=== PATIENT | male | born 1955 | race Caucasian/White ===

== ENCOUNTER 2016-07-16 16:00 | Inpatient (IN) | payer OTHER ==
[2016-07-16] VITALS (33 sets, daily range): BP systolic 85–117; BP diastolic 56–82
[~2016-07-16] VITALS: Ht 180.3 cm; Wt 68.9 kg
--- NOTE | ~2016-07-16 | 2DMMODE ---
[facility] [address] [place] [address] 2 D/M-MODE ECHOCARDIOGRAM Name: MOEJAYY Room #: 243-P [facility] IN M.R.#: [id number] Admission: 07/16/16 Attend Phys: Kosta Fuchs Discharge: 07/18/16 Date of : 57 Date of Service: 07/18/16 1514 Report #: [id number] THIS REPORT FOR: //name// APPROVED REPORT Study performed: 07/18/2016 08:15:37 EXAM: Comprehensive 2D, Doppler, and color-flow Echocardiogram Patient Location: Bedside/ Room 243 Blood Pressure: 120/88 mmHg HR: 67 bpm Other Information Study Quality: Good Indications Dyspnea Chest Pain Status/Post WA Hx: CAD, stents, HTN, HLP 2D Dimensions RVDd: 40.52 mm LVEF(%): 63.55 (>50%) IVSd: 9.69 (7-11mm) LVOT Diam: 21.14 (18-24mm) LVDd: 45.89 mm PWd: 9.30 (7-11mm) Ascending Aorta: 30.74 mm LVDs: 30.10 (25-40mm) Aortic Root: 32.20 mm Lazo's LVEF: 63.55 % Volumes Left Atrial Volume (Systole) Single Plane 4CH: 30.49 mL Single Plane 2CH: 26.72 mL LA ESV Index: 17.00 mL/m2 Aortic Valve AoV Peak Panfilo.: 1.43 m/s AO Peak Gr.: 8.24 mmHg LV Max P.93 mmHg LV Max: 0.99 m/s Mitral Valve MV PHT: 139.40 ms [facility] [address] [place] [address] 2 D/M-MODE ECHOCARDIOGRAM Name: MOEJAYY Room #: 243-P [facility] IN [facility].#: [id number] Admission: 07/16/16 Attend Phys: Kosta Fuchs Discharge: 07/18/16 Date of : 57 Date of Service: 07/18/16 1514 Report #: [id number] MV E Max Panfilo.: 0.55 m/s E/A Ratio: 0.8 MV A Panfilo.: 0.68 m/s MV Decel. Time: 480.70 ms Pulmonary Valve PV Peak Panfilo.: 0.76 m/s PV Peak Gr.: 2.30 mmHg Tricuspid Valve TR Peak Panfilo.: 2.50 m/s RAP Estimate: 5.00 mmHg TR Peak Gr.: 25.03 mmHg RVSP: 30.00 mmHg Left Ventricle The left ventricle is normal size. Regional wall motion abnormalities are noted. There is normal left ventricular wall thickness. Left ventricular systolic function is borderline. LVEF is 45-50%. Grade I - abnormal relaxation pattern. Right Ventricle The right ventricle is normal size. Right ventricle appears hypokinetic. Atria The left atrium size is normal. The right atrium size is normal. Aortic Valve Aortic valve leaflets are mildly thickened. No aortic regurgitation is present. There is no aortic valvular stenosis. Mitral Valve The mitral valve is normal in structure. Mild mitral regurgitation. Tricuspid Valve The tricuspid valve is normal in structure. There is trace tricuspid regurgitation. The right atrial pressure is estimated at 5 mmHg. There is borderline mild pulmonary hypertension with an estimated PAP of 30mmHg. Pulmonic Valve The pulmonary valve is normal in structure. Trace pulmonic regurgitation. Great Vessels The aortic root is normal in size. The ascending aorta is normal in size. IVC is normal in size and collapses >50% with inspiration. [facility] [address] [place] [address] 2 D/M-MODE ECHOCARDIOGRAM Name: MOEJAYY Room #: 243-P [facility] IN M.R.#: [id number] Admission: 07/16/16 Attend Phys: Kosta Fuchs Discharge: 07/18/16 Date of : 57 Date of Service: 07/18/16 1514 Report #: [id number] Pericardium There is no pericardial effusion. <Conclusion> The left ventricle is normal size. Regional wall motion abnormalities are noted. LVEF is 45-50%. Right ventricle appears hypokinetic. Aortic valve leaflets are mildly thickened. Mild mitral regurgitation. There is trace tricuspid regurgitation. The right atrial pressure is estimated at 5 mmHg. There is borderline mild pulmonary hypertension with an estimated PAP of 30mmHg. Trace pulmonic regurgitation. <ELECTRONICALLY SIGNED> By: Kam Aguirre MD 07/18/16 1514 1514 1514 Kam Aguirre MD /INF
--- NOTE | ~2016-07-16 | EKG ---
[address] [address] ELECTROCARDIOGRAM REPORT Name: JAYY ROSA Room #: 243-P ADM IN M.R.#: [id number] Admission: 07/16/16 Attend Phys: Andrea Ortiz MD Discharge: Date of : 57 Report #: [id number] THIS REPORT FOR: //name// [facility] ED Test Date: 2016-07-16 Test Time: 16:02:54 Pat Name: JAYY ROSA Department: Room: 243 Gender: M Coke Wheeler: daniel : 1955 Requested By: Ayo Vega Order Number: [id number] MD: Noel Love Measurements Intervals [place] Rate: 55 P: ME: QRS: 147 QRSD: 128 T: 96 QT: 494 QTc: 473 Interpretive Statements Sinus rhyth Acute inferior TN ST depression V1-V3, suggest recording posterior leads Baseline wander in lead(s) I,III,aVL,aVF No previous ECG available for comparison Electronically Signed On 07-17-2016 20:04:50 CDT by Noel Love [email or web address] <ELECTRONICALLY SIGNED> By: Noel Love MD 07/17/162003 01 01 Noel Love MD /[facility]
--- NOTE | ~2016-07-16 | HC ---
[facility] [place] [address] CONSULTATION Name: JAYY ROSA Room #: 243-P ADM IN M.R.#: [id number] Admission: 07/16/16 Attend Phys: Andrea Ortiz MD Discharge: Date of : 57 Report #: [id number] THIS REPORT FOR: //name// CC: WILIAN physician/PCP Andrea Ortiz DATE OF SERVICE: 07/16/2016 INDICATION: Chest pain. HISTORY OF PRESENT ILLNESS: This is a 50-year-old gentleman presenting with acute onset of substernal chest pain associated with shortness of breath and diaphoresis. He had been up on the roof, working on shingles when he developed chest pains. He came down to the ground and told his . He was outside until EMS arrived, unclear the duration. May be anywhere from 45 minutes to [id number]. Initial EKG revealed inferior ST segment elevation. In the ER, he complains of chest pains and shivering, complaining of excessive cold. PAST MEDICAL HISTORY: In 2011, an SC with stent placed, unknown hospital. He reports taking medications, but his followups had been inconsistent, hypertension, hypercholesterolemia, tobacco use. ALLERGIES: None. MEDICATIONS: Unknown, reports taking Plavix 75 mg daily, metoprolol, lisinopril, and pravastatin. Again, there is a history of noncompliance. SOCIAL HISTORY: Smokes at least 1 pack of cigarettes per day. FAMILY HISTORY: Negative for premature CAD. REVIEW OF SYSTEMS: Unable to be performed as the patient is in distress. PHYSICAL EXAMINATION: VITAL SIGNS: Blood pressure is 117/60, heart rate is 55 beats per minute. GENERAL APPEARANCE: The patient in mild distress with shivering. HEENT: Normocephalic. Sclerae are anicteric. Oral mucosa moist. NECK: Supple. LUNGS: Clear to auscultation. CARDIAC: Regular rate and rhythm, S1, S2 positive. ABDOMEN: Soft, nontender. Bowel sounds positive. EXTREMITIES: No major joint deformities. No edema. LABORATORY VALUES: Pending. ECG reveals sinus bradycardia, ST elevation in leads II, III, aVF. [facility] [address] [place] [address] CONSULTATION Name: JAYY ROSA Room #: 243-P ADM IN M.R.#: [id number] Admission: 07/16/16 Attend Phys: Andrea Ortiz MD Discharge: Date of : 57 Report #: [id number] ASSESSMENT: 1. Acute inferior wall myocardial infarction, the patient will need to go to the cardiac clinical lab assistant. 2. Hypertension. 3. Hypercholesterolemia. 4. Tobacco use, complete smoking cessation will be discussed. 5. ?Hypothermia, will need to assess further. <ELECTRONICALLY SIGNED> By: Ayo Vega MD 07/18/16 0759 1614 2205 Ayo Vega MD /nt
--- NOTE | ~2016-07-16 | EKG ---
[address] [place] [place] [address] ELECTROCARDIOGRAM REPORT Name: JAYY ROSA Room #: 243-P ADM IN M.R.#: [id number] Admission: 07/16/16 Attend Phys: Andrea Ortiz MD Discharge: Date of : 57 Report #: [id number] THIS REPORT FOR: //name// [facility] Test Date: 2016-07-16 Test Time: 23:41:42 Pat Name: JAYY ROSA Department: Room: 243 P Gender: M Per Diem Nurse: joao : 1955 Requested By: Ayo Vega Order Number: [id number] MD: Noel Love Measurements Intervals [place] Rate: 63 P: 74 [place]: 164 QRS: 216 QRSD: 111 T: -24 QT: 451 QTc: 462 Interpretive Statements Sinus rhythm Multiform ventricular premature complexes Inferior infarct, recent No previous ECG available for comparison Electronically Signed On 07-17-2016 20:13:10 CDT by Noel Love [email or web address] <ELECTRONICALLY SIGNED> By: Noel Love MD 07/17/162012 2341 2341 Noel Love MD /YANET
--- NOTE | ~2016-07-16 | CATHLAB ---
[place] [address] [facility] [employer] [address] INVASIVE PROCEDURE REPORT Name: JAYY ROSA Room #: 243-P ADM IN M.R.#: [id number] Admission: 07/16/16 Attend Phys: Kosta Fuchs Discharge: Date of : 57 Date of Service: 07/16/16 1723 Report #: [id number] THIS REPORT FOR: //name// CC: WILIAN physician/PCP Andrea Ortiz DATE OF SERVICE: 07/16/2016 INDICATION: Acute inferior wall VA. The right groin area was prepped and draped in a sterile manner. Lidocaine was given subcutaneously. A 6-Burundian sheath was inserted into the right femoral artery via modified Seldinger technique. CORONARY ANATOMY: The left main artery is a large caliber vessel, with no flow-limiting lesions. The LAD is a moderate sized caliber vessel, traveling down the anterior wall. There is mild disease in the proximal and mid segments of the LAD, 20-30%. The second diagonal artery is a moderate sized caliber vessel with mild disease in the proximal segment. The left circumflex artery has mild disease in the proximal segment, 30-40%. There is one obtuse marginal artery of moderate size caliber. There were no flow-limiting lesions in the first obtuse marginal artery. The RCA is a dominant vessel with mild disease proximally. There were previously placed stents in the mid to distal segments of the RCA. Within the stented area, there is a total occlusion. The distal RCA is partially filled via collateral flow from the left coronary artery. A left ventriculogram was performed at the end of the procedure, revealing an ejection fraction of 35%. There is severe hypokinesis of the inferior and inferoapical segments. The LVEDP is approximately 27 mmHg. There is no gradient across the outflow tract. ANGIOPLASTY REPORT: The patient had been given heparin and ACT was checked. The patient was given Angiomax for the procedure. We used a 6-Burundian system. I was able to pass a Luge wire through the obstruction in the stented area of the mid segment of the RCA. There were filling defects consistent with thrombus. We used [employer] thrombectomy catheter. After several passes, there was significant removal of the filling defects. There was still a residual lesion of at least 80% within the stented area. This was ballooned with a 3.0 mm Euphora balloon. Even after balloon dilatation, there was still significant residual stenosis. I elected to place a 3.25 x 12 mm Xience ( drug-eluting [address] [address] INVASIVE PROCEDURE REPORT Name: ROSAJAYY Room #: 243-P ADM IN M.R.#: [id number] Admission: 07/16/16 Attend Phys: Kosta Fuchs Discharge: Date of : 57 Date of Service: 07/16/16 1723 Report #: [id number] stent), inflated up to 14 atmospheres. This stent was postdilated with a 3.25 mm noncompliant balloon, NC Euphora inflated up to 20 atmospheres. Final injections revealed TISH 3 blood flow with a 0% residual stenosis at the lesion site. After the initial thrombectomy procedure with druze flow, the patient had significant ventricular arrhythmias including AIVR and slow ventricular tachycardia. He was given amiodarone bolus x 1. The blood pressure was in the low side and the patient was started on dopamine. Half amp atropine was also given for bradycardia. At the end of the procedure, he remained hemodynamically stable. IMPRESSION: 1. Successful recannulization of the total occlusion in a previously stented area in the mid right coronary artery, using mechanical thrombectomy and placement of a drug-eluting stent. 2. Mild disease in the left anterior descending and left circumflex arteries. 3. Moderately severe left ventricular dysfunction. 4. Recommend dual antiplatelet therapy. 5. Recommend risk factor management including cessation of tobacco use. <ELECTRONICALLY SIGNED> By: Ayo Vega MD 07/18/16 0758 1723 0126 Ayo Vega MD /nt
[2016-07-16 16:23] LABS: ABSOLUTE NEUTROPHILS 11.5 thou/uL (1.4-8.2); BASOPHILS 0.6 % (0.0-2.0); EOSINOPHILS 2.4 % (0.0-3.0); HEMATOCRIT 43.3 % (42.0-52.0); HEMOGLOBIN 14.7 gm/dL (14.0-18.0); LYMPHOCYTES 17.9 % (24.0-44.0); MCH 29.2 pg (26.0-34.0); MCHC 33.9 g/dL (28.0-37.0); MCV 86.1 fL (80.0-100.0); PLATELET COUNT 248 thou/uL (150-400); POLYS 74.1 % (36.0-66.0); RBC 5.02 mil/uL (4.50-6.00); RDW 13.7 % (10.5-14.5); WBC 15.5 thou/uL (4.0-11.0)
[2016-07-16 16:30] LABS: ANION GAP 14 mmol/L (7-16); BUN 23 mg/dL (7-18); CALCIUM 9.7 mg/dL (8.5-10.1); CHLORIDE 102 mmol/L (98-107); CO2 20 mmol/L (21-32); CREATININE 1.7 mg/dL (0.6-1.3); GLUCOSE 118 mg/dL (70-99); MANUAL DIFF NO; SODIUM 136 mmol/L (136-145)
[2016-07-16 16:32] LABS: POTASSIUM 4.4 mmol/L (3.5-5.1)
[2016-07-16 16:37] LABS: TROPONIN-I < 0.04 ng/mL (<0.04-0.07)
[2016-07-16 16:45] LABS: APTT 22.9 Seconds (24.5-32.8); INR 1.1; PROTIME 10.9 Seconds (9.3-11.4)
[2016-07-17] VITALS (53 sets, daily range): BP systolic 85–120; BP diastolic 61–88
[2016-07-17 04:31] LABS: ANION GAP 9 mmol/L (7-16); BUN 22 mg/dL (7-18); CALCIUM 8.3 mg/dL (8.5-10.1); CHLORIDE 106 mmol/L (98-107); CHOLESTEROL 154 mg/dL (<200); CO2 24 mmol/L (21-32); CREATININE 1.2 mg/dL (0.6-1.3); GLUCOSE 107 mg/dL (70-99); HDL CHOLESTEROL 54 mg/dL (>40); LDL CHOLESTEROL 81 mg/dL (<100); SODIUM 139 mmol/L (136-145); TC:HDL 2.9 Ratio (Not establshd); TRIGLYCERIDE 96 mg/dL (<150); VLDL 19 mg/dL (<40)
[2016-07-17 04:47] LABS: HEMATOCRIT 38.9 % (42.0-52.0); HEMOGLOBIN 13.2 gm/dL (14.0-18.0); MCH 29.7 pg (26.0-34.0); MCV 87.4 fL (80.0-100.0); RBC 4.46 mil/uL (4.50-6.00); RDW 14.1 % (10.5-14.5); WBC 9.9 thou/uL (4.0-11.0)
[2016-07-17 04:50] LABS: SERUM ASSESSMENT Clear
[2016-07-17 04:52] LABS: TROPONIN-I 39.94 ng/mL (<0.04-0.07)
[2016-07-18] VITALS (13 sets, daily range): BP systolic 106–133; BP diastolic 76–98
[2016-07-18 02:47] LABS: HEMATOCRIT 40.3 % (42.0-52.0); HEMOGLOBIN 13.6 gm/dL (14.0-18.0); MCH 29.5 pg (26.0-34.0); MCHC 33.7 g/dL (28.0-37.0); MCV 87.5 fL (80.0-100.0); RBC 4.6 mil/uL (4.50-6.00); RDW 13.9 % (10.5-14.5); WBC 9.6 thou/uL (4.0-11.0)
[2016-07-18 03:00] LABS: CALCIUM 8.5 mg/dL (8.5-10.1); POTASSIUM 4.2 mmol/L (3.5-5.1)
[2016-07-18 08:06] LABS: POC CA IONIZED 4.3 mg/dL (4.5-5.3); POC CREATININE 1.4 mg/dL (0.6-1.3); POC HEMOGLOBIN 14.6 g/dL (14.0-18.0); POC POTASSIUM 4.4 mmol/L (3.5-5.1)
[2016-07-18] MEDS ORDERED: NICOTINE TRANSD14 M1 TRANSDERM (09:46)
[2016-07-18] MEDS ORDERED: EFFIENT10 MG PO (09:46)
[2016-07-18] MEDS ORDERED: ASPIRIN325 PO (09:46)
[2016-07-18] MEDS ORDERED: ATORVASTATIN CA40 MG PO (09:46)
[2016-07-18] MEDS ORDERED: FOLIC ACID 1 MG1 MG PO (09:46)
[2016-07-18] MEDS ORDERED: VITAMIN B-1100 M2 PO (09:46)
== END 2016-07-18 11:33 | disposition home or self-care (01) | DRG 247 ==
LOC: ER 16:00 → ICU 16:06 → EROBS 16:06 → EDBD 16:06 → ICU 19:21
PROVIDERS: Emergency Medicine; Family Medicine; Internal Medicine Cardiovascular Disease
PROC: 027034Z Dilation of Coronary Artery, One Artery with Drug-eluting Intraluminal Device, Percutaneous Approach (ICD-10-PCS; principal; 2016-07-16)
PROC: 02C03ZZ Extirpation of Matter from Coronary Artery, One Artery, Percutaneous Approach (ICD-10-PCS; principal; 2016-07-16)
PROC: 4A023N7 Measurement of Cardiac Sampling and Pressure, Left Heart, Percutaneous Approach (ICD-10-PCS; principal; 2016-07-16)
PROC: B2151ZZ Fluoroscopy of Left Heart using Low Osmolar Contrast (ICD-10-PCS; principal; 2016-07-16)
PROC: B2111ZZ Fluoroscopy of Multiple Coronary Arteries using Low Osmolar Contrast (ICD-10-PCS; principal; 2016-07-16)
DX: I21.09 ST elevation (STEMI) myocardial infarction involving other coronary artery of anterior wall (principal); I25.10 Atherosclerotic heart disease of native coronary artery without angina pectoris; I10 Essential (primary) hypertension; I25.5 Ischemic cardiomyopathy; F17.210 Nicotine dependence, cigarettes, uncomplicated; E78.5 Hyperlipidemia, unspecified; I25.82 Chronic total occlusion of coronary artery; F12.10 Cannabis abuse, uncomplicated; D72.829 Elevated white blood cell count, unspecified; T68.XXXA Hypothermia, initial encounter; N28.9 Disorder of kidney and ureter, unspecified; R00.1 Bradycardia, unspecified; E78.00 Pure hypercholesterolemia, unspecified; Z88.8 Allergy status to other drugs, medicaments and biological substances; Z79.899 Other long term (current) drug therapy; Z71.6 Tobacco abuse counseling; Z91.14 Patient's other noncompliance with medication regimen; I25.2 Old myocardial infarction
CPT/HCPCS: 10196